=== PATIENT | male | born 1985 | race Caucasian/White ===

== ENCOUNTER 2020-03-12 09:26 | Emergency (ER) | payer OTHER ==
[~2020-03-12] VITALS: Ht 177.8 cm; Wt 73.0 kg
[2020-03-12] MEDS ORDERED: FLUORESCEIN SODIUM 1MG/STRIP LEFTEYE ONE (10:00)
[2020-03-12] MEDS ORDERED: TETRACAINE 0.5% OPHTH DROPS 4ML LEFTEYE ONE (10:00)
[2020-03-12 11:00] VITALS: BP 118/80
== END 2020-03-12 11:18 | disposition home or self-care (01) ==
LOC: ER 10:06
DX: H11.32 Conjunctival hemorrhage, left eye (principal)
CPT/HCPCS: 99283